=== PATIENT | female | born 2000 | race Two or more races ===

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

== ENCOUNTER 2023-06-27 08:44 | Outpatient (AMB) | payer OTHER, SELFPAY ==
[2023-06-27 08:52] VITALS: BP 100/64; PULSE 78; O2SAT 98; BMI 28.7
--- NOTE | 2023-06-27 08:52 | A.OFFPC_ITS ---
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 Required: No Accompanied by: Self / Same As Patient Allergies Chocolate Allergy (Mild, Verified 06/27/23 09:05) Hives Medication List - Last Reconciled 06/27/23 by KATTY De Dios No Known Home Meds Tobacco use date assessed: 01/08/23 Dental Screening Dental Screen Date: 06/27/23 Did you have a dental visit in the last 12 months?: No Did you have a dental problem in the last 6 months where you did not have access to dental care?: No Was dental information given to patient?: Patient has dentist HPI HPI Comments History of Present Illness Details 22-year-old female past medical history significant for acne. Patient presents today for physical exam. Patient denies any acute concerns. Denies CP, palpitations, sob and syncope. Patient reports she is sexually active with 1 partner, uses condoms. Reports she feels safe in her relationship Patient referred to OBGYN for Pap smear Eye exam: Patient reports had eye exam completed last year, recommended every couple of years. Declined flu shot. PFSH Family History Father No family history of mental disorder Thyroid condition Mother No family history of mental disorder Asthma Sister No family history of mental disorder Asthma Lupus Social History Household Members: Family Housing: House Alcohol intake: never Patient Tobacco Use Status: Never used Tobacco e-Cigarette/Vaping Use: Never Used Current occupational status: employed Cognitive needs: No Hearing needs: No Vision needs: No Female Reproductive History Menstrual control method: condoms Questionnaire JENNIFER-7 AMB Questionnaire JENNIFER-7 Date JENNIFER - 7 assessed: 01/08/23 Source: Developed by Drs. George Hare, Maria M Carl, Israel Perez and colleagues, with an educational pillo from [employer]. Review of Systems Const Denies chills, Denies fatigue, Denies fever(s) and Denies poor appetite Eyes Denies no additional complaints ENT Reports Normal hearing present Card Denies chest pain, Denies syncope, Denies rapid heart rate and Denies dyspnea Resp Denies cough and Denies dyspnea GI Denies change in stool character, Denies constipation, Denies diarrhea, Denies nausea and Denies vomiting Denies urinary frequency, Denies dysuria and Denies urinary urgency Neuro Reports Normal hearing present, Denies confusion and Denies syncope Psych Denies confusion Endo Denies fatigue Physical exam (Primary Care) Vital Signs: Last Vital Signs Pulse 78 06/27/23 08:52 BP 100/64 06/27/23 08:52 Pulse Ox 98 06/27/23 08:52 Oxygen Delivery Method Room Air 06/27/23 08:52 BMI result Body Mass Index 28.7 Tobacco/Smoking Status: Tobacco use Status Tobacco use date assessed 01/08/23 06/27/23 08:57 Patient Tobacco Use Status Never used Tobacco 06/27/23 08:57 e-Cigarette/Vaping Use Never Used 06/27/23 08:57 Const General: No confusion Orientation/consciousness: No confusion HENMT Head: Yes normocephalic and Yes atraumatic Ears: external ears normal and TM's normal bilaterally General nose exam: Normal external nose present and Normal nasal mucous membranes and turbinates present Face and sinus: Yes normal facial exam and Yes sinuses nontender Mouth: moist mucous membranes Throat: Yes tonsils normal Eyes Conjunctivae: conjunctivae normal Sclerae: sclerae normal Pupils: Equal, round and reactive pupils present and Pupils normal by confrontation EOM: EOMs intact bilaterally Direct Ophthalmoscopy: normal light reflex Neck Neck: Yes no lymphadenopathy and Yes supple Thyroid: Thyroid normal Chest Chest palpation & inspection: normal inspection of the chest Resp Effort & Inspection: normal respiratory effort Auscultation: clear to auscultation bilaterally, no crackles, no rhonchi and no wheezes Cardio Rate: regular rate Rhythm: regular rhythm Peripheral pulses: radial pulses present and dorsalis pedis present GI Inspection: Yes normal to inspection Palpation (GI): Soft to palpation, nontender and No hepatosplenomegaly present Auscultation: normoactive bowel sounds Skin General skin exam: no rashes or lesions noted Neuro General: No confusion Cranial nerves: Yes Equal, round and reactive pupils present and Yes Normal hearing present Cognition (Neuro): normal cognition Gait exam (Neuro): Normal gait present Motor exam (neuro): 5/5 motor strength present throughout Deep tendon reflexes (DTR's): Right brachioradialis reflex intensity grade: 2+, Left brachioradialis reflex intensity grade: 2+, Right patellar reflex intensity grade: 2+ and Left patellar reflex intensity grade: 2+ Extrem General: No edema Assessment and Plan Assessment & Plan (1) Normal physical exam: Code(s): Z00.00 - Encounter for general adult medical examination without abnormal findings Plan: Follow up in 1 year for physical exam Orders: Referrals SHIPS EQUIPMENT ENGINEER Referral Z12.4 - Encounter for screening for malignant neoplasm of cervix Coding Level of Care Code Est Pt Prev Care 18-39y(46301) Diagnoses Normal physical exam Z00.00
== END 2023-06-27 09:12 | disposition home or self-care (01) ==
PROVIDERS: Visit Provider Nurse Practitioner Family
DX: Z00.00 Encounter for general adult medical examination without abnormal findings (principal)
CPT/HCPCS: 99395

== ENCOUNTER 2023-09-13 10:11 | Outpatient (AMB) | payer OTHER, SELFPAY ==
--- NOTE | 2023-09-13 10:24 | MHC.OFFVIS ---
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 She has received care before at [facility] and once it [facility] and also with her primary care provider. She is 22 years old she does not have children she gets regular periods and her last period was August 31 and typically lasts about 5 days. She uses condoms for control she had tried pills in the past but kept forgetting them and did not do well with them and she knows she does not want the shot and she has talked to her mom about it and her mom has the Mirena and she thinks that she would like an IUD like her mom is also. She is very careful to use condoms and will continue to use condoms for STD protection but does not want to depend on them only for prevention. We discussed that there has a smaller IUD that is available for young women who have not had babies called the Adiena which is similar but a lower does and I reviewed the side effects and how they can be ameliorated in terms of irregular bleeding if we are careful to put it in at the beginning of her period. She also tells me that she did get diagnosed once with chlamydia in the past at [facility] and then she went to [facility] for STI testing with blood work for HIV etc. and all of that was negative but that was a while back she would like to get screened again today for everything but she does not necessarily want to go get blood work today she might go another time. She works at [employer] in 3 different departments and she was not school but isn't now but she might go back again in the future but will think about she used to work out and is thinking about going back to the gym again. PFSH Family History Father No family history of mental disorder Thyroid condition Mother No family history of mental disorder Asthma Sister No family history of mental disorder Asthma Lupus Social History Household Members: Family Housing: House Alcohol intake: never Patient Tobacco Use Status: Never used Tobacco e-Cigarette/Vaping Use: Never Used Patient : No Current occupational status: employed Cognitive needs: No Hearing needs: No Vision needs: No Female Reproductive History Menstrual Age of Menarche: 13 Duration of menses: 3-5 days Date of last menstrual period: 08/31/23 control method: none Full term: 0 History of abnormal pap smear: No (no previous pap) Physical Exam Vital Signs: Last Vital Signs BP 100/60 09/13/23 10:33 BMI result Body Mass Index 28.0 Const General: healthy appearing, comfortable, no acute distress, well developed and alert Nutritional Appearance: average body habitus Orientation/consciousness: patient oriented x3 Limitations: no limitations HEENT Head: Yes normocephalic Neck Neck: Yes normal visual inspection Chest Chest palpation & inspection: normal inspection of the chest Breast/axilla inspection: normal inspection of the breasts and normal inspection of the axillae Breast/axilla palpation: normal palpation of the breasts and normal palpation of the axillae Resp Effort & Inspection: normal respiratory effort GI Inspection: Yes normal to inspection, No Abdominal wall edema and No distended Palpation (GI): Soft to palpation and nontender Other: External exam completely within normal limits vagina pink and moist cervix pink smooth nulliparous mucus is scant white consistent with luteal phase cervix mobile nontender uterus small retroverted nontender adnexa nontender good tone with Kegel. General: Yes bladder normal to palpation External Female Exam: normal external appearance and normal appearance of the urethra Speculum Exam - Vagina: normal appearance of the vagina, normal palpation and normal vaginal discharge Speculum Exam - Cervix: normal appearance of the cervix, normal palpation and nontender Bimanual exam- vagina & uterus: normal bimanual exam, normal palpation, uterine size normal, bladder normal to palpation, consistency normal, normal palpation, uterine mobility normal, uterine shape normal, No Cervical tenderness present, non-tender and no cervical motion tenderness Bimanual Exam- Adnexa, other: normal adnexae, no masses, normal and No adnexal tenderness Neuro General: patient oriented x3 Assessment & Plan Assessment & Plan (1) Cervical cancer screening: Code(s): Z12.4 - Encounter for screening for malignant neoplasm of cervix (2) Encounter for screening examination for sexually transmitted disease: Code(s): Z11.3 - Encounter for screening for infections with a predominantly sexual mode of transmission (3) control counseling: Code(s): Z30.09 - Encounter for other general counseling and advice on contraception (4) Well woman exam with routine gynecological exam: Code(s): Z01.419 - Encounter for gynecological examination (general) (routine) without abnormal findings Plan -----Discussed in this visit the following: healthy balanced diet, regular and consistent exercise, getting recommended health screens, doing the best she can for her particular health concerns, kegel exercises, pap smear screening and followup recommendations, mammography screening and SBE, normal changes in cycles in her life stage--- .-I reviewed with the patient, all of the currently common used methods of control that are available. We reviewed how they work in the body, how they are taken, common side effects, uncommon side effects, precautions, and contraindications. -Discussed also factors that influence their effectiveness and use, and womens satisfaction with the method. -Discussed how each are used, and drawbacks of each method as well. -Methods covered included: condoms, control pills,Depo-Provera, Mirena and Kyleena IUDs, and fertility awareness. She came pretty much knowing that she wanted an IUD like her mom's. Discussed the importance of placing it at the beginning of her. And while that can be awkward to schedule if she calls the available business day when she has her. Hopefully we can schedule it as close to the beginning of her period as possible discussed the physiological reasons why that is the best time to put it in both from ease of placement for her and physiologically as well. Patient has no further questions about that she does want to get blood work for STI tests like HIV etc. but not today and she will get it done some other time. Her mother was waiting for her in the waiting room and had expressed a desire for her to be seen up at the hospital but the patient said that she would rather be seen by this provider and does not mind coming here. We will see her wherever it is best for her at the beginning of her period for insertion of a Kyleena. Education also done around the HPV virus as well as other STDs and what condoms protect from and what they do not. The patient believes she probably did get all of her vaccines and she has access to her [facility] portal to check all her vaccines and she is going to do that, but she probably did get them all because her general farm manager was Dr. Alicia Meeks. We will see her in the 1st day or 2 of the beginning of her next menses for Kyleena insertion I explained the process of insertion. Orders: Orders Hepatitis C Antibody Today Z01.419 - Encounter for gynecological examination (general) (routine) without abnormal findings, Z11.3 - Encounter for screening for infections with a predominantly sexual mode of transmission, Z12.4 - Encounter for screening for malignant neoplasm of cervix, Z30.09 - Encounter for other general counseling and advice on contraception Hepatitis B Surface Antigen Today Z01.419 - Encounter for gynecological examination (general) (routine) without abnormal findings, Z11.3 - Encounter for screening for infections with a predominantly sexual mode of transmission, Z12.4 - Encounter for screening for malignant neoplasm of cervix, Z30.09 - Encounter for other general counseling and advice on contraception HIV Ab/Ag Today Z01.419 - Encounter for gynecological examination (general) (routine) without abnormal findings, Z11.3 - Encounter for screening for infections with a predominantly sexual mode of transmission, Z12.4 - Encounter for screening for malignant neoplasm of cervix, Z30.09 - Encounter for other general counseling and advice on contraception Syphilis Screen Today Z01.419 - Encounter for gynecological examination (general) (routine) without abnormal findings, Z11.3 - Encounter for screening for infections with a predominantly sexual mode of transmission, Z12.4 - Encounter for screening for malignant neoplasm of cervix, Z30.09 - Encounter for other general counseling and advice on contraception Coding Level of Care Code New Pt Prev Care 18-39yr([id number] Diagnoses Cervical cancer screening Z12.4 Encounter for screening examination for sexually transmitted disease Z11.3 control counseling Z30.09 Well woman exam with routine gynecological exam Z01.419
[2023-09-13 10:33] VITALS: BP 100/60; BMI 28.0
== END 2023-09-13 11:25 | disposition home or self-care (01) ==
LOC: HO.HWSM 10:11
PROVIDERS: PCP Hospitalist; Visit Provider Advanced Practice Midwife
DX: Z01.419 Encounter for gynecological examination (general) (routine) without abnormal findings (principal); Z30.09 Encounter for other general counseling and advice on contraception
CPT/HCPCS: 99385

== ENCOUNTER 2023-09-13 10:11 | Outpatient (REF) | payer OTHER, SELFPAY ==
[2023-09-14 09:52] LABS: CT PCR NOT DETECTED (Not Detect.); NG PCR NOT DETECTED (Not Detect.)
[2023-09-14 11:38] LABS: BV Int Neg Control Negative (Negative); BV Int Pos Control Positive (Positive)
== END 2023-09-13 10:12 | disposition home or self-care (01) ==
LOC: HO.LAB 10:11
PROVIDERS: PCP Hospitalist; Visit Provider Advanced Practice Midwife
DX: Z01.419 Encounter for gynecological examination (general) (routine) without abnormal findings (principal)
CPT/HCPCS: 0353U; 87480; 87510; 87660; 88142; 99385

== ENCOUNTER 2023-09-25 09:45 | Outpatient (AMB) | payer OTHER, SELFPAY ==
[2023-09-25 09:47] VITALS: BP 108/64; BMI 28.0
--- NOTE | 2023-09-25 09:47 | A.OFFVIS_ITS ---
Intake Vital Signs 09/25/23 09:47 Height 5 ft 5 in Weight 168 lb BMI 28.0 BP 108/64 Intake Visit Reasons: Kyleena Insertion Costume Director Required: No Information Interpreted: non-clinical & clinical Clinical Operations Specialist: Clinical Operations Specialist Present Accompanied by: Self / Same As Patient Allergies Chocolate Allergy (Mild, Verified 09/25/23 09:50) Hives Medication List - Last Reconciled 09/25/23 by Tereza Berry CNM No Known Home Meds Is last menstrual period known: Yes Last menstrual period: 09/24/23 Post menopausal: No Patient : No HPI Kyleena Insertion HPI Details Patient is here for Kyleena insertion she had a visit recently with her 1st Pap and pelvic. She thinks that this method will work best for her she is taken pills in the past and had trouble remembering them. Previous periods started August 31 to but this periods started yesterday and that is when she called to make this appointment. PFSH Family History Father No family history of mental disorder Thyroid condition Mother No family history of mental disorder Asthma Sister No family history of mental disorder Asthma Lupus Social History Household Members: Family Housing: House Alcohol intake: never Patient Tobacco Use Status: Never used Tobacco e-Cigarette/Vaping Use: Never Used Patient : No Current occupational status: employed Cognitive needs: No Hearing needs: No Vision needs: No Female Reproductive History Menstrual Age of Menarche: 13 Duration of menses: 3-5 days Date of last menstrual period: 09/24/23 control method: none Total pregnancies: 0 Date of last pap smear: 09/17/23 History of abnormal pap smear: No (Pending) History of STI: No Physical Exam Vital Signs: Last Vital Signs BP 108/64 09/25/23 09:47 BMI result Body Mass Index 28.0 Other: Normal menses cervix nulliparous long close thick pink smooth uterus small midposition nontender not enlarged adnexa nontender good tone see procedures for insertion. External Female Exam: normal external appearance Speculum Exam - Vagina: normal appearance of the vagina and normal vaginal discharge Speculum Exam - Cervix: normal appearance of the cervix Bimanual exam- vagina & uterus: normal bimanual exam, uterine size normal, con sistency normal, uterine mobility normal, uterine shape normal and non-tender Bimanual Exam- Adnexa, other: normal adnexae, no masses and No adnexal tenderness Office Procedures IUD Insert/Removal Details Details: Patient supplied not given, practice supplied given. Procedure code (CPT) selection complete IUD Insert/Removal Details Details: ---Patient is here for her IUDinsertion. Bimanual exam was done. Her uterus is firm, nontender, and appropriate sized, and is midposition. ---The cervix was recleaned with Betadine. Tenaculum was placed on the cervix slowly to minimize cramping. The uterus was sounded slowly and gently she show a measurement of 7 cm. The IUD was removed from its package, after checking identifying information and lot dates and expiration dates and and gently inserted into the os, as per the IUD insertion procedure. The strings were then trimmed to 3-4 centimetres. The tenaculum was removed and gentle pressure applied with a swab, until any bleeding subsided from the tenaculum sites. The speculum was gently removed. The patient sat up. I Reviewed what to expect, and what indications would necessitate a call. Pt to call for fever, untoward pain or cramping. I reviewed any appropriate backup method. Pt to return for recheck as scheduled. [id number] Insertion Procedure code (CPT) selection complete Office Meds Kyleena 17.5 mcg/24 hrs (5yrs) 19.5mg intrauterine device Performing Provider: Tereza Berry CNM Performing Location: [facility] Documented (not given) by: Marilyn Rodriguez CMA on 09/25/23 11:03 Reason Not Given: No Longer Necessary Kyleena 17.5 mcg/24 hrs (5yrs) 19.5mg intrauterine device Performing Provider: Tereza Berry CNM Performing Location: [facility] Administered by: Marilyn Rodriguez CMA on 09/25/23 11:35 Dose Route Admin Location Dispensed Lot Number Expiration Date [facility] Economics Teacher 1 device intrauterine [facility] [address] 1 device [id number] 04/27/25 [id number] [employer] Results AMB Test Urine AMB Test Urine Negative Last Edit by Radha Bliss MA on 09/25/23 10:03 Results Reviewed Results Reviewed: Laboratory Last Values [facility]st Clinic Negative 09/25/23 10:02 Assessment & Plan Assessment & Plan (1) control counseling: Code(s): Z30.09 - Encounter for other general counseling and advice on contraception (2) Encounter for screening examination for sexually transmitted disease: Code(s): Z11.3 - Encounter for screening for infections with a predominantly sexual mode of transmission (3) Cervical cancer screening: Code(s): Z12.4 - Encounter for screening for malignant neoplasm of cervix Plan IUD (Kyleena was inserted per protocol into her 7 cm midposition uterus atraumatically. Patient was given the remainder of the string to feel and reviewed what to expect and what reasons would require a visit or call signs of infection expulsion or severe pain. We will see her in about 6 weeks I recommend no sex till the end of her menses which should be about 4 or 5 days. Orders: Orders AMB HCG Urine Test 09/25/23 Z32.02 - Encounter for test, result negative AMB IUD Insertion/Removal - Practice Supplied 09/25/23 Z30.430 - Encounter for insertion of intrauterine contraceptive device AMB IUD Insertion/Removal - Patient Supply 09/25/23 Z30.430 - Encounter for insertion of intrauterine contraceptive device Coding Level of Care Code Est Pt Level 3 (89217) Diagnoses control counseling Z30.09 Encounter for screening examination for sexually transmitted disease Z11.3 Cervical cancer screening Z12.4 CPT Codes Details - CPT: 32412-QDV Insertion ([id number])
== END 2023-09-25 11:17 | disposition home or self-care (01) ==
LOC: HO.HWSM 09:46
PROVIDERS: PCP Hospitalist; Visit Provider Advanced Practice Midwife
DX: Z30.430 Encounter for insertion of intrauterine contraceptive device (principal)
CPT/HCPCS: 58300

== ENCOUNTER → 2023-09-25 09:45 | Outpatient (BNVA) | payer OTHER, SELFPAY | PROVIDERS: PCP Hospitalist; Visit Provider Advanced Practice Midwife | DX: Z30.09 Encounter for other general counseling and advice on contraception (principal); Z11.3 Encounter for screening for infections with a predominantly sexual mode of transmission; Z12.4 Encounter for screening for malignant neoplasm of cervix | CPT/HCPCS: 58300; J7296 ==

== ENCOUNTER 2025-04-01 07:32 | Outpatient (AMB) | payer OTHER, SELFPAY ==
--- OUTSIDE RECORDS SUMMARY | 2022-03-13 12:08 | XMS_ITS | Encounter Summary ---
Author Organization [facility] Address [address] [place] [id number] Phone Care Team Providers Care Home Restoration Service Cleaner Name Role Phone Pcp, Unknown Primary Care Provider Unavailabl e Encounter Details Date Type Department Care Team (Late st Contact Info) Description 03/13/2022 12:08 PM EDT Hospital Encounter [facility] [address] [place] [id number] Rosana Gilbert FNP [address] [place] [address] [email or web address] Social History Tobacco Use Types Packs/Day Years Used Date Smoking Tobacco: Never Smokeless Tobacco: Never Education Answer Date Recorded Are you interested in more education? Not on beckie e 11/24/2022 Are you concerned about learning? Not on file 11/24/2022 No 11/24/2022 No 11/24/2022 Digital Access Answer Date Recorded No 12/23/2022 No 12/23/2022 Reliable internet access at home? Not on file 12/23/2022 Device with a working camera? Not on file Comments Unknown Sex and Gender Information Value Date Recorded Sex Assigned at Not on file Legal Sex Female 10:30 AM EDT Gender Identity Not on file Sexual Orientation Not on file documented as of this encounter Plan of Treatment Not on file documented as of this encounter Procedures Procedure Name Priority Date/Time Associated Diagnosis Comments XR FOOT 3 OR MORE VIEWS (RIGHT) Urgent/patient waiting 03/13/2022 12:12 PM EDT Sprain of right foot, initial encounter documented in this encounter Results * XR FOOT 3 OR MORE VIEWS (RIGHT) (03/13/2022 12:12 PM EDT) Anatomical Region Laterality Modality Foot Right Computed Radiogr aphy 03/13/2022 12:4 3 PM EDT Impressions 03/13/2022 12:44 PM EDT No fracture or dislocation. Narrative 03/13/2022 12:44 PM EDT XR FOOT 3 OR MORE VIEWS (RIGHT) COMPARISON: None. FINDINGS: No fracture. Normal alignment. Normal joint spaces. No soft tissue swelling. Procedure Note Kristi Garcia MD - 03/13/2022 XR FOOT 3 OR MORE VIEWS (RIGHT) COMPARISON: None. FINDINGS: No fracture. Normal alignment. Normal joint spaces. No soft tissueswelling. IMPRESSION: No fracture or dislocation. Rosana Gilbert ELECTRON GUN INSPECTOR IMG XR LOWER EXTREMITY Marycarmen l Result documented in this encounter Visit Diagnoses Not on filedocumented in this encounter Additional Health Concerns Infection Onset Date Last Indicated Resolved Time CoV-Risk 04/30/2023 04/30/2023 05/11/2023 1:22 AM EDT documented as of this encounter Care Teams Home Restoration Service Cleaner Relationship Specialty Start Date End Date Pcp, Unknown PCP - General 03/13/22 04/29/23 documented as of this encounter Additional Source Comments The information contained in this document represents components of the legal health record. It is not the complete legal health record.[facility]
--- NOTE | 2025-04-01 07:34 | A.OFFVIS_ITS ---
Vital Signs 04/01/25 07:40 Height 5 ft 6 in Weight 170 lb BMI 27.4 BP 102/68 Intake Visit Reasons: IUD check Administrator Of Home Health Required: No Information Interpreted: non-clinical & clinical Lead Manufacturing Technician: Lead Manufacturing Technician Present (Malu STARR) Accompanied by: Self / Same As Patient Allergies Chocolate Allergy (Mild, Verified 04/01/25 07:40) Hives HPI Comments Details: The patient is presenting for IUD check . The patient has no complaints periods are normal, not painful, and flow is normal. Complaining of feeling the IUD string on and off [facility] Family History Father No family history of mental disorder Thyroid condition Mother No family history of mental disorder Asthma Sister No family history of mental disorder Asthma Lupus Social History Household Members: Family Housing: House Alcohol intake: never Patient Tobacco Use Status: Never used Tobacco e-Cigarette/Vaping Use: Never Used Current occupational status: employed Cognitive needs: No Hearing needs: No Vision needs: No Female Reproductive History Menstrual Age of Menarche: 13 control method: progestin IUCD Review of Systems Const All systems reviewed & are unremarkable except as noted in HPI and below Physical Exam Vital Signs: Last Vital Signs BP 102/68 04/01/25 07:40 BMI result Body Mass Index 27.4 General: Yes no CVA tenderness External Female Exam: normal external appearance and normal appearance of the urethra Speculum Exam - Vagina: normal appearance of the vagina, normal palpation, no lesions and no masses Speculum Exam - Cervix: normal appearance of the cervix, normal palpation, no lesions, no masses, nontender and Other cervical findings present (IUD string seen) Bimanual exam- vagina & uterus: normal bimanual exam, normal palpation, uterine size normal, normal palpation, uterine shape normal, No Cervical tenderness present and non-tender Bimanual Exam- Adnexa, other: normal adnexae Back/Spine/Pelvis Back: no CVA tenderness Results AMB Test Urine AMB Test Urine Negative Last Edit by Malu Amador CMA on 07:46 Assessment & Plan Assessment & Plan (1) IUD check up: Code(s): Z30.431 - Encounter for routine checking of intrauterine contraceptive device Category: Medical Plan: IUD string trimmed . UPT done in the office was negative. Discussed with the patient the finding on physical exam, IUD string in place, the patient was reassured. Instructions given to patient to call in case of temperature above 100.4, cramping/pelvic pain, abnormal discharge or abnormal uterine bleeding or if she misses her menstrual cycle. Otherwise follow-up at her annual exam appointment. All questions answered, the patient verbalized understanding. Orders: Orders AMB HCG Urine Test Today Z32.02 - Encounter for test, result negative Coding Level of Care Code Est Pt Level 3 (07002) Diagnoses IUD check up Z30.431
--- OUTSIDE RECORDS SUMMARY | 2025-04-01 07:36 | XMS_ITS | Encounter Summary ---
Author Organization [facility] Address [address] [place] [id number] Phone Care Team Providers Care Organizational Research Consultant Name Role Phone Shantal Garcia MD Primary Care Provider [phone] Encounter Details Date Type Department Care Team (Late st Contact Info) Description 09/17/2012 Documentation [facility] [place] [facility] [address] [place] [address] Family Medicine, Physician [address] [id number] Social History Tobacco Use Types Packs/Day Years Used Date Smoking Tobacco: Never Assessed Comments Unknown Sex and Gender Information Value Date Recorded Sex Assigned at Female 03/17/2020 5:52 PM EDT Legal Sex Female 4:52 PM EDT Gender Identity Female 03/17/2020 5:52 PM EDT Sexual Orientation Straight 03/17/2020 5: 52 PM EDT documented as of this encounter Plan of Treatment Not on file documented as of this encounter Visit Diagnoses Not on filedocumented in this encounter Care Teams Organizational Research Consultant Relationship Specialty Start Date End Date Shantal Garcia MD [address] [place] [id number] PCP - General Pediatrics 03/29/18 01/15/23 documented as of this encounter
--- OUTSIDE RECORDS SUMMARY | 2025-04-01 07:36 | XMS_ITS | Clinical Summary ---
Author Organization [facility] Address [address] [place] [id number] Phone Care Team Providers Care Bulk Sausage Casing Tier Off Name Role Phone Unavailable Primary Care Provider Unavailabl e Allergies Active Allergy Reactions Criticality Noted Date Comments Chocolate Medications No known medications Active Problems Problem Noted Date Diagnosed Date Refused influenza vaccine 07/04/2020 Overview (07/04/2020): Myopia 03/11/2020 Overview (03/17/2020): Annual eye visits with Dr. Roxann Ibrahim, OD, glasses/contacts motion and time study teacher. Assessment & Plan (03/17/2020 6:01 PM EDT): Has contacts, sees her dental hygiene instructor annually. 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 Observation only. 01/14 Assessment & Plan (03/17/2020 6:01 PM EDT): No change today. Assessment & Plan (01/22/2019 4:43 PM EDT): Doesn't bother her and she says she tried a cream in the past which didn't help. Will observe and offer treatment (likely mild-high potency topical steroid) if she desires in the future. Immunizations Immunization Administration Dates Next Due DTaP 5 12/13/2005, 3,05/08/2002, 002,01/16/2002 HPV Vaccine 9 Valent 12/26/2017,01/22/2017,11/22 Hep A, ped/adol 12/24/2014,12/18/2013 Hep B, ped/adol 08/14/2002,05/08/2002,2001 Hib (PRP-T) 01/22/2003, 2,02/27/2002, 002 IPV 12/13/2005, 3,02/27/2002, 002 Influenza, injectable, trivalent 04/18/2009,12/08/2007,06/05/2007 MMR 12/13/2005,10/23/2002 Meningococcal B Trumenba 03/17/2020,01/22/2019 Meningococcal Conj (Menactra) MCV4P 12/26/2017,0 12/16/2012 Pneumococcal Conjugate 01/22/2003,2001,02/27/2002, 002 Tdap 12/16/2012 Varicella 12/16/2012,10/23/2002 Family History Medical History Relation Name Comments Dustin's thyroiditis Father Jer Ballesteros No Known Problems Mother Carolina Fernandes Anxiety disorder Sister Zenia Ballesteros Depression Sister Zenia Ballesteros Lupus Sister Zenia Ballesteros Migraines Sister Zenia Ballesteros Relation Name Status Comments Cousin Cousin: Asthma Father Jer Ballesteros Alive Father: Stroke, Deafness, Deafness Maternal Grandfather Materna l grandfather: Deafness Maternal Grandmother Materna l aunt: Hyperlipidemia, Diabetes mellitus, Obesity Maternal Great-Grandfather m aternal great uncle: Sudden /[place] under 55 Mother Carolina Fernandes Alive Mother: Asthma, Migraines Sister Zenia Ballesteros Alive Social History Tobacco Use Types Packs/Day Years Used Date Smoking Tobacco: Never Smokeless Tobacco: Never Tobacco Cessation:Counseling Given: Yes Comments:Never smoker Alcohol Use Standard Drinks/Week Comments Never 0 (1 standard drink = 0.6 oz pur e alcohol) Hunger/Food Answer Date Recorded In the last 12 months, did y ou or your family ever eat less than you felt you should because there wasn't enough money for food? No 03/17/2020 Stable Housing Answer Date Recorded Are you worried that in the next 2 months you may not have stable housing? No 03/17/2020 Transportation Concerns Answer Date Rec orded In the last 12 months, have you or your family ever had to go without healthcare because you didn't have a way to get there? No 03/17/2020 Hazards in Home Answer Date Recorded Think about the place you li ve. Do you have problems with any of the following? Pests (mice or roaches), mold, no/not working smoke detectors, water leaks, no window guards. No 2019 Financing Utilities Answer Date Recorde d In the last 12 months, has t he electric, gas, oil, or water company threatened to shut off your services in your home? No 03/17/2020 Safety at Home Answer Date Recorded Are you or your family worried about feeling saf e in your home? No 03/17/2020 Outside Support Answer Date Recorded Do you feel that you need mo re support from other people or programs to help you care for yourself or your family? No 03/17/2020 Understanding Health Concerns Answer Da te Recorded Do you need help understandi ng your or your child's healthcare needs (diagnosis, medications, plan, etc.)? No 03/17/2020 Financing Health Concerns Answer Date R ecorded In the last 12 months, was t here a time when your child needed to see a doctor or get medications or supplies but could not because of cost? No 03/17/2020 Missing School or Work Answer Date Jose Carlos rded Did you or your child miss s chool or work because of a health problem that could have been avoided? No 03/17/2020 Comments No Sex and Gender Information Value Date Recorded Sex Assigned at Female 03/17/2020 5:52 PM EDT Legal Sex Female 4:52 PM EDT Gender Identity Female 03/17/2020 5:52 PM EDT Sexual Orientation Straight 03/17/2020 5: 52 PM EDT Last Filed Vital Signs Vital Sign Reading Time Taken Comments Blood Pressure 110/65 07/04/2020 9:37 AM EST Pulse 85 07/04/2020 9:37 AM EST Temperature 36 C (96.8 F) 07/04/2020 9:37 AM EST Respiratory Rate - - Oxygen Saturation - - Inhaled Oxygen Concentration - - Weight 77.1 kg (170 lb) 07/04/2020 9:37 AM EST Height 165.7 cm (5' 5.25 ) 03/17/2020 5:31 PM ED T Body Mass Index 28.07 03/17/2020 5:31 PM EDT Plan of Treatment Health Maintenance Due Date Last Done Comments DTaP,Tdap,and Td Vaccines (7 - Td or Tdap) 12/16/2022 12/16/2012, 12/13/2005, 04/30/2003, Additional history exists Influenza Vaccines (#1) 2025 04/18/20 09, 06/29/2008, 06/05/2007 COVID-19 Vaccine (3 2024-2 6 season) 2025 01/24/2021, 01/03/2021 Hepatitis B Vaccines Completed 08/14/2002, 05/08/2002, 2001 HIB Vaccines Completed 01/22/2003, 04/28, 02/27/2002, Additional history exists Pneumococcal Vaccine Completed 01/22/2003, 05/08/2002, 02/27/2002, Additional history exists IPV Vaccines Completed 12/13/2005, 07/29, 02/27/2002, Additional history exists MMR Vaccines Completed 12/13/2005, 10/23/2002 Varicella Vaccines Completed 12/16/2012, 10/23/2002 Hepatitis A Vaccines Completed 12/24/2014, 12/19/19 14 HPV Vaccines Completed 12/26/2017, 12/28, 11/22/2016 Meningococcal Vaccine Completed 12/26/2017, 013 Men B Vaccine Completed 03/17/2020, 01/22/2019 Procedures * Due to [place] LRN law, this organization might not be sharing sensitive test results. Procedure Name Priority Date/Time Associated Diagnosis Comments CHLAMYDIA AND GONORRHEA, AMPLIFIED Routine 07/04/2020 10:54 AM EST Chlamydia trachomatis infection from Last 3 Months or Most Recently Relevant to Health Maintenance Results * Due to [place] LR[place] law, this organization might not be sharing sensitive test results. * Chlamydia and Gonorrhoea, Amplified (07/04/2020 10:54 AM EST) Chlamydia Trachomatis, DNA Probe NEGATIVE (NEG) [facility] Comment: No Chlamydia Trachomatis RNA detected in this patient's sample (REFERENCE RANGE/NORMAL VALUE: NOT DETECTED) Note: This test uses modeling director- mediated amplification method to detect rRNA from C. Trachomatis URINE GC AMP PROBE NEGATIVE (NEG) [facility] Comment: No Neisseria Gonorrhoeae RNA detected in this patient's sample (REFERENCE RANGE/NORMAL VALUE: NOT DETECTED) NOTE: This test uses modeling director-mediated amplification method to detect rRNA from N.Gonorrhoeae. A negative result does not preclude infection. In the case of a negative urine result, testing of an endocervical(female) or urethral (male) specimen is recommended if there is high clinical suspicion of infection. Due to very high sensitivity of Nucleic Acid Amplification Test, false positive results may occur. Therefore, specimen handling is extremely important. In patients in whom the disease is unlikely, additional sample for testing should be considered after an initial positive result. The performance characteristics of this test have not been evaluated in children. The Aptima Combo2 assay is not intended for the evaluation of suspected sexual abuse or for other medico-legal indications. The ordering provider should assess if the patient had consensual sex without risk of sexual abuse. Consult the [facility] if needed. Contact phone number . Therapeutic failure or success cannot be determined with the Aptima Combo2 assay since nucleic acid may persist following appropriate antimicrobial therapy. The Centers for Disease Control and Prevention (CDC) recommends confirmatory retesting using culture or a different nucleic acid amplification test when positive results occur, if indicated. Testing performed or reported by [facility], a Service of [facility], [address] [place] [id number] Jerson Uriarte MD, Airplane Navigator Urine 07/04/2020 10:5 4 AM EST 07/04/2020 10:56 AM EST us Shantal Garcia MD LAB MICROBIOLOGY - GENERAL OR DERABLES Final Result [facility] from Last 3 Months or Most Recently Relevant to Health Maintenance Insurance [facility] NON PCC [facility] PPO
--- OUTSIDE RECORDS SUMMARY | 2025-04-01 07:36 | XMS_ITS | Clinical Summary ---
Author Organization [facility] Address [address] [id number] Phone Care Team Providers Care Brake Reliner Name Role Phone Ngoc Cavazos MD Primary Care Provider Allergies No known active allergies Medications ibuprofen (ADVIL,MOTRIN) 600 MG tablet Take 1 tablet (600 mg total) by mouth 3 (three) times a day for 3 days. Then tid prn pain/inflam mation 30 tablet 03/13/2022 Active Active Problems No known active problems Immunizations Immunization Administration Dates Next Due HPV9 12/26/2017,01/22/2017,11/22/2016 Hepatitis A, ped/adol, 2 dose 12/24/2014 Meningococcal B, recombinant (MenB-FHbp) 020,01/22/2019 Meningococcal MCV4P 12/26/2017 Social History Tobacco Use Types Packs/Day Years Used Date Smoking Tobacco: Never Smokeless Tobacco: Never Tobacco Cessation:Counseling Given: Not Answered Education Answer Date Recorded Are you interested [...] on file Sexual Orientation Not on file Last Filed Vital Signs Vital Sign Reading Time Taken Comments Blood Pressure 104/69 04/30/2023 3:02 PM EDT Pulse 96 04/30/2023 3:02 PM EDT Temperature 36.9 C (98.4 F) 04/30/2023 3:02 PM EDT Respiratory Rate 18 04/30/2023 3:02 PM EDT Oxygen Saturation 98% 04/30/2023 3:02 PM EDT Inhaled Oxygen Concentration - - Weight 83.9 kg (185 lb) 03/13/2022 11:44 AM EDT Height 167.6 cm (5' 6 ) 03/13/2022 11:44 AM EDT Body Mass Index 29.86 03/13/2022 11:44 AM EDT Plan of Treatment Health Maintenance Due Date Last Done Comments Adult Td,Tdap Booster 2001 DEPRESSION SCREENING 2013 SMOKING Hx and SMOKELESS TOBACCO SCREENING 2014 HEPATITIS A VACCINES (2 of 2 - 2-dose series) 06/26/2015 12/24/2014 CHLAMYDIA SCREENING 2017 HEPATITIS C SCREENING 10/20/2019 HIV ONE-TIME SCREENING (18-6 5 YEARS) 10/20/2019 PAP SMEAR 2022 COVID-19 VACCINE (3 - 2023-2 5 season) 2024 01/24/2021, 01/03/2021 HPV VACCINES Completed 12/26/2017, 01/22/2017, 11/22/2016 MENINGOCOCCAL VACCINES (ACWY) Completed 12/26/2017 MENINGOCOCCAL VACCINES (B) Completed 03/17, 01/22/2019 HIB VACCINES Aged Out No longer eligi ble based on patient's age to complete this topic PNEUMOCOCCAL VACCINES (0-49 years) Aged Out No longer eligible b ased on patient's age to complete this topic Medical Devices Not on file Insurance [facility] ACO ACO ACO ACO Care Teams Brake Reliner Relationship Specialty Start Date End Date Ngoc Cavazos MD [address] [place] [address] [place] [address] PCP - General Pediatrics 04/30/23 Additional Source Comments The information contained in this document represents components of the legal health record. It is not the complete legal health record.[facility]
--- OUTSIDE RECORDS SUMMARY | 2025-04-01 07:36 | XMS_ITS | Encounter Summary ---
Author Organization [facility] Address [address] [place] [address] Phone Care Team Providers Care Semiconductor Engineer Name Role Phone Shantal Garcia MD Primary Care Provider [phone] Encounter Details Date Type Department Care Team (Late st Contact Info) Description 03/14/2017 Conversion Encounter [facility] [address] [place] [address] Social History Tobacco Use Types Packs/Day Years Used Date Smoking Tobacco: Never Comments:Never smoker Comments Unknown Sex and Gender Information Value [...] on filedocumented in this encounter Care Teams Semiconductor Engineer Relationship Specialty Start Date End Date Shantal Garcia MD [address] [place] [address] PCP - General Pediatrics 03/29/18 01/15/23 documented as of this encounter
[2025-04-01 07:40] VITALS: BP 102/68; BMI 27.4
== END 2025-04-01 07:50 | disposition home or self-care (01) ==
LOC: HO.HWS 07:32
PROVIDERS: PCP Hospitalist; Visit Provider Obstetrics & Gynecology
DX: Z32.02 Encounter for pregnancy test, result negative (principal); Z30.431 Encounter for routine checking of intrauterine contraceptive device
CPT/HCPCS: 99213

== ENCOUNTER → 2025-04-01 07:32 | Outpatient (BNVA) | payer OTHER, SELFPAY | PROVIDERS: PCP Hospitalist; Visit Provider Obstetrics & Gynecology | DX: Z30.431 Encounter for routine checking of intrauterine contraceptive device (principal); Z32.02 Encounter for pregnancy test, result negative | CPT/HCPCS: 81025 ==